=== PATIENT | female | born 1995 | race African-American/Black ===

== ENCOUNTER 2018-06-09 18:59 | Emergency (ER) | payer OTHER ==
--- NOTE | 2018-06-09 19:37 | UC ---
Knee Pain HPI - History of Current Complaint Stated Complaint: KNEE INJURY Time Seen by Provider: 06/09/18 19:27 Discharge - Discharge Plan Referrals: No Primary Care Phys,NOPCP [Primary Care Provider] -
[2018-06-09 19:41] VITALS: BP 134/74
--- NOTE | 2018-06-09 19:41 | UC ---
Knee Pain HPI - HPI Summary HPI Summary: 23 yo female presents with LEFT knee pain. She tells me that this morning she was skateboarding and fell - her left knee buckled. Since that time has been swelling and cracking/popping when walking. She is using crutches as she cannot bear weight at this time. Has some pain radiating down her left leg and up her left thigh. She has taken ibuprofen with mild relief. - History of Current Complaint Stated Complaint: KNEE INJURY Time Seen by Provider: 06/09/18 19:27 Hx Obtained From: Patient Onset/Duration: Sudden Onset Severity Initially: Severe Severity Currently: Severe Pain Intensity: 8 Pain Scale Used: 0-10 Numeric - Allergies/Home Medications Allergies/Adverse Reactions: Allergies Allergy/AdvReac Type Severity Reaction Status Date / Time No Known Allergies Allergy Verified 06/09/18 19:42 PMH/Surg Hx/FS Hx/Imm Hx - Additional Past Medical History Additional PMH: None - Surgical History Surgical History: Yes Surgery Procedure, Year, and Place: Right meniscus repair - Family History Known Family History: Positive: None - Social History Occupation: Employed Full-time Lives: With Family Alcohol Use: Occasionally Substance Use Type: None Smoking Status (MU): Never Smoked Tobacco Review of Systems Constitutional: Negative Skin: Negative Respiratory: Negative Cardiovascular: Negative Neurovascular: Negative Musculoskeletal: Other: - Left knee pain Neurological: Negative Psychological: Negative All Other Systems Reviewed And Are Negative: Yes Physical Exam - Summary Physical Exam Summary: GENERAL: NAD. WDWN. No pain distress. SKIN: No rashes, sores, lesions, or open wounds. CHEST: No accessory muscle use. Breathing comfortably and in no distress. CV: . Pulses intact popliteal, PT, and DP. Cap refill <2seconds MSK: LEFT KNEE: NTTP. Moderate edema. Flexion to 45deg before pain stops her. Extension to 10deg. Unable to perform specialized testing due to pain with movement. NEURO: Alert. Sensations intact and symmetric B/L LEs PSYCH: Age appropriate behavior. Triage Information Reviewed: Yes Vital Signs: Vital Signs: Temp Pulse Resp BP Pulse Ox 97.8 F 85 15 134/74 99 06/09/18 19:35 06/09/18 19:35 06/09/18 19:35 06/09/18 19:35 06/09/18 19:35 Vital Signs Reviewed: Yes Knee Pain Course/Dx - Course Course Of Treatment: XR: No radiologist reading after 1800, therefore wet read by myself is negative for fracture. iSTOP: Reference #: [id number]. Suspect meniscus injury. Advised to continue using crutches, RICE, and taking ibuprofen. She is requesting something more for pain and has had norco in the past with good relief. She also has a [place] and says that she cannot see an Orthopedic doctor in [place], but will follow up in [place] when she returns. 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 - Differential Dx/Diagnosis Provider Diagnoses: Left knee pain Discharge - Sign-Out/Discharge Documenting (check all that apply): Patient Departure All imaging exams completed and their final reports reviewed: No - Discharge Plan Condition: Stable Disposition: HOME Prescriptions: HYDROcodone/ACETAMIN 5-325 MG* [[place] 5-325 TAB*] 1 tab PO Q8H PRN #9 tab MDD 3 PRN Reason: Pain Patient Education Materials: Knee Pain (ED), Meniscus Tear (ED) Forms: *Work Release Referrals: No Primary Care Phys,NOPCP [Primary Care Provider] - Additional Instructions: If you develop a fever, shortness of breath, chest pain, new or worsening symptoms - please call your PCP or go to the ED. Your blood pressure was mildly elevated at todays visit. Please see your primary provider within 4 weeks for recheck and re-evaluation. 1) Rest, Ice, and elevate your knee as much as possible 2) Use the Crutches, GONZÁLEZ wrap, and knee brace for added support and comfort 3) Please follow up with Orthopedics as soon as possible for further evaluation - Billing Disposition and Condition Condition: STABLE Disposition: Home
--- NOTE | 2018-06-10 07:33 | RAD ---
HISTORY: Medial knee pain, trauma COMPARISONS: None VIEWS: 4 , Frontal, lateral, axial, and oblique views of the left knee FINDINGS: BONE DENSITY: Normal. BONES: There is no displaced fracture. JOINTS: There is no arthropathy. There is no suprapatellar joint effusion or lipohemarthrosis. ALIGNMENT: There is no dislocation. SOFT TISSUES: Unremarkable. OTHER FINDINGS: None. IMPRESSION: NO ACUTE OSSEOUS INJURY. IF SYMPTOMS PERSIST, RECOMMEND REPEAT IMAGING. R0
--- NOTE | 2018-06-10 09:13 | UC ---
- Progress Note Progress Note: Final radiologist x-ray reading from June 09, 2018 for the left knee is an NAD. This is consistent with the initial wet read and does not change care at this time. Discharge - Sign-Out/Discharge Documenting (check all that apply): Patient Departure All imaging exams completed and their final reports reviewed: Yes - Discharge Plan Condition: Stable Disposition: HOME Prescriptions: HYDROcodone/ACETAMIN 5-325 MG* [[place] 5-325 TAB*] 1 tab PO Q8H PRN #9 tab MDD 3 PRN Reason: Pain Patient Education Materials: Knee Pain (ED), Meniscus Tear (ED) Forms: *Work Release Referrals: No Primary Care Phys,NOPCP [Primary Care Provider] - Additional Instructions: If you develop a fever, shortness of breath, chest pain, new or worsening symptoms - please call your PCP or go to the ED. Your blood pressure was mildly elevated at todays visit. Please see your primary provider within 4 weeks for recheck and re-evaluation. 1) Rest, Ice, and elevate your knee as much as possible 2) Use the Crutches, GONZÁLEZ wrap, and knee brace for added support and comfort 3) Please follow up with Orthopedics as soon as possible for further evaluation - Billing Disposition and Condition Condition: STABLE Disposition: Home
== END 2018-06-09 20:35 | disposition home or self-care (01) ==
LOC: UCEAST 18:59
DX: M25.562 Pain in left knee (principal)
CPT/HCPCS: 99202; G0463

== ENCOUNTER 2018-06-11 08:38 | Emergency (ER) | payer OTHER ==
[2018-06-11 09:03] VITALS: BP 128/79
--- NOTE | 2018-06-11 13:10 | UC ---
Knee Pain HPI - HPI Summary HPI Summary: TWISTED LEFT KNEE AWKWARDLY WHILE SKATEBOARDING 2 DAYS AGO. CAME HERE FOR EVAL AND HAD NEG XRAYS. AT THAT TIME PT STATED SHE WOULD F/U WITH ORTHO BACK HOME IN [place] BUT RETURNS TODAY STATING SHE DOESN'T THINK SHE CAN WAIT THAT LONG AND IS SEEKING REFERRAL. - History of Current Complaint Chief Complaint: UCLowerExtremity Stated Complaint: KNEE INJURY-REVIST Time Seen by Provider: 06/11/18 10:02 Hx Obtained From: Patient Hx Last Menstrual Period: 05/27/18 Onset/Duration: Sudden Onset, Lasting Days, Still Present Severity Initially: Moderate Severity Currently: Moderate Pain Intensity: 1 Pain Scale Used: 0-10 Numeric Character: Sharp, Aching, Throbbing Aggravating Factor(s): Movement, Weight Bearing Alleviating Factor(s): Rest Associated Signs And Symptoms: Positive: Swelling Able to Bear Weight: No - Allergies/Home Medications Allergies/Adverse Reactions: Allergies Allergy/AdvReac Type Severity Reaction Status Date / Time No Known Allergies Allergy Verified 06/11/18 09:03 PMH/Surg Hx/FS Hx/Imm Hx Previously Healthy: Yes - Surgical History Surgical History: Yes Surgery Procedure, Year, and Place: Right meniscus repair - Family History Known Family History: Positive: None - Social History Alcohol Use: Occasionally Substance Use Type: None Smoking Status (MU): Never Smoked Tobacco Review of Systems Constitutional: Negative Respiratory: Negative Cardiovascular: Negative Gastrointestinal: Negative Musculoskeletal: Arthralgia, Decreased ROM, Edema All Other Systems Reviewed And Are Negative: Yes Physical Exam Triage Information Reviewed: Yes Appearance: Well-Appearing, No Pain Distress, Well-Nourished Vital Signs: Initial Vital Signs Temp 97.9 F 06/11/18 08:58 Pulse 72 06/11/18 08:58 Resp 18 06/11/18 08:58 BP 128/79 06/11/18 08:58 Pulse Ox 99 06/11/18 08:58 Vital Signs Reviewed: Yes Eyes: Positive: Conjunctiva Clear ENT: Positive: Hearing grossly normal Neck: Positive: Supple Respiratory: Positive: No respiratory distress, No accessory muscle use Cardiovascular: Positive: Pulses Normal Abdomen Description: Positive: Soft Musculoskeletal: Positive: Other: - PT DECLINES KNEE EXAM Neurological: Positive: Alert Psychological: Positive: Age Appropriate Behavior Skin: Negative: rashes Knee Pain Course/Dx - Course Course Of Treatment: PT ADVISED TO CALL ORTHO TODAY FOR F/U APPT. CONTACT INFORMATION PROVIDED. - Differential Dx/Diagnosis Provider Diagnoses: LEFT KNEE INJURY - SUSPECT INTERNAL KNEE INJURY Discharge - Sign-Out/Discharge Documenting (check all that apply): Patient Departure All imaging exams completed and their final reports reviewed: No Studies - Discharge Plan Condition: Stable Disposition: HOME Patient Education Materials: Knee Pain (ED) Referrals: Eldon Gomez MD [Medical Doctor] - 2 Days Additional Instructions: SUSPECTED INTERNAL KNEE INJURY: The examiner of your injured knee suspects an internal injury to the cartilage or internal ligaments. This must be further investigated by an medical staff specialist. The knee should be protected, ice packed, and elevated while awaiting your follow-up exam by the orthopedist. If there is severe swelling, severe pain, or any new symptoms while awaiting your exam, you should call the orthopedist. (If he/she is unavailable, call us or return for re-examination.) CALL [facility]TH[facility] TODAY FOR A FOLLOW-UP APPT. YOU MAY BENEFIT FROM [facility]. - Billing Disposition and Condition Condition: STABLE Disposition: Home
== END 2018-06-11 10:30 | disposition home or self-care (01) ==
LOC: UCEAST 08:38
DX: S89.92XD Unspecified injury of left lower leg, subsequent encounter (principal); X50.1XXD Overexertion from prolonged static or awkward postures, subsequent encounter
CPT/HCPCS: 99211; G0463